=== PATIENT | female | born 1985 | race American Indian/Alaskan Native ===

== ENCOUNTER 2017-07-12 17:56 | Emergency (ER) | payer BC ==
[2017-07-12 18:59] LABS: Basophils % (Auto) 0.6 % (0.0-1.8); Eosinophils # (Auto) 0.1 K/mm3 (0.0-0.4); Hematocrit 37.6 % (30.3-42.9); Hemoglobin 12.5 gm/dl (10.1-14.3); Lymphocytes # (Auto) 1.8 K/mm3 (1.2-5.4); Lymphocytes % (Auto) 36.1 % (13.4-35.0); Mean Corpuscular HGB Conc 33 % (30-34); Mean Corpuscular Hemoglobin 36 pg (28-32); Mean Corpuscular Volume 109 fl (79-97); Monocytes # (Auto) 0.6 K/mm3 (0.0-0.8); Monocytes % (Auto) 12.5 % (0.0-7.3); Platelet Count 242 K/mm3 (140-440); Red Blood Count 3.47 M/mm3 (3.65-5.03); Red Cell Distribution Width 12.7 % (13.2-15.2)
[2017-07-12 19:03] LABS: Alanine Aminotransferase 18 units/L (7-56); Albumin 4.4 g/dL (3.9-5); BUN/Creatinine Ratio 13; Blood Urea Nitrogen 10 mg/dL (7-17); Calcium 9.3 mg/dL (8.4-10.2); Hemolysis Index 11; Lipase 14 units/L (13-60)
[2017-07-12 19:58] LABS: HCG Qualitative,Urine Negative (Negative)
[2017-07-12 20:00] LABS: Bilirubin,Urine NEG (Negative); Blood,Urine MOD (Negative); Color,Urine Yellow (Yellow); Mucus,Urine 3+ /HPF; Urobilinogen,Urine < 2.0 mg/dL (<2.0)
[2017-07-13] MEDS ORDERED: ZOFRAN IV ONE (02:09)
[2017-07-13] MEDS ORDERED: PEPCID IV ONE (02:09)
[2017-07-13] MEDS ORDERED: TORADOL IV ONE (02:09)
[2017-07-13] MEDS ORDERED: NACL 0.9% 1000 ML 1,000 ML IV ONE (02:09)
--- NOTE | 2017-07-13 02:34 | Emergency Department Report ---
HPI - General Chief Complaint: Abdominal Pain Time Seen by Provider: 07/13/17 01:24 - HPI HPI: Patient is a 32-year-old female with a history of GERD who presents with abdominal pain with nausea vomiting. Patient states she takes protein pump inhibitors and ranitidine has not been helping the patient's E she sees on a [facility] and has an appointment next Tuesday. Patient states abdominal pain and nausea vomiting has become intolerable that she could not wait to her doctor 's appointment so she came in today. She denies diarrhea or constipation, fever , chest pain, shortness of breath. ED Past Medical Hx - Past Medical History Hx GERD: Yes Additional medical history: chronic digestive problems - Surgical History Additional Surgical History: EGD-2016 - Social History Smoking Status: Never Smoker Substance Use Type: None - Medications Home Medications: Home Medications Medication Instructions Recorded Confirmed Last Taken Type Ondansetron [Zofran TAB] 8 mg PO Q8HR PRN #30 tablet 07/13/17 Unknown Rx traMADol [Ultram 50 MG tab] 50 mg PO Q6HR PRN #20 tablet 07/13/17 Unknown Rx ED Review of Systems ROS: Stated complaint: ABD PN Other details as noted in HPI Constitutional: denies: chills, fever Eyes: denies: eye pain, eye discharge, vision change ENT: denies: ear pain, throat pain Respiratory: denies: cough, shortness of breath, wheezing Cardiovascular: denies: chest pain, palpitations Endocrine: no symptoms reported Gastrointestinal: denies: abdominal pain, nausea, diarrhea Genitourinary: denies: urgency, dysuria, discharge Musculoskeletal: denies: back pain, joint swelling, arthralgia Skin: denies: rash, lesions Neurological: denies: headache, weakness, paresthesias Psychiatric: denies: anxiety, depression Hematological/Lymphatic: denies: easy bleeding, easy bruising Physical Exam - Physical Exam Vital Signs: Vital Signs 07/12/17 18:19 Temperature 98.6 F Pulse Rate 103 H Respiratory 18 Rate Blood Pressure 105/70 O2 Sat by Pulse 100 Oximetry Physical Exam: GENERAL: Alert and oriented x3, no apparent distress, Normal Gait, atraumatic. HEAD: Head is normocephalic and a-traumatic. MOUTH:Mouth is well hydrated and without lesions. Tonsils nonerythematous or swollen, Uvula midline, Tongue not elevated. Mucous membranes are moist. Posterior pharynx clear, no exudate or lesions. Patent airways. LUNGS: Symetrical with respiration, No wheezing, no rales or crackles, CTAB. HEART: S1, S2 present, regular rate and rhythm without murmur, no rubs, no gallops. Non tender to palpation ABDOMEN: No organomegaly was noted,Positive bowel sounds, soft, and non- distended. . Nontender to palpation on all Quadrants, NO CVA tenderness. BACK: Full range of motion, no spinal tenderness, nontender to palpation. NEUROLOGIC: The patient is cooperative with no focal neurologic deficits. SKIN: Warm and dry, No lesions, No ulceration or induration present. ED Course Vital Signs 07/12/17 18:19 Temperature 98.6 F Pulse Rate 103 H Respiratory 18 Rate Blood Pressure 105/70 O2 Sat by Pulse 100 Oximetry ED Medical Decision Making - Lab Data Result diagrams: 07/12/17 18:37 07/12/17 18:37 Laboratory Last Values WBC 4.9 K/mm3 (4.5-11.0) 07/12/17 18:37 RBC 3.47 M/mm3 (3.65-5.03) L 07/12/17 18:37 Hgb 12.5 gm/dl (10.1-14.3) 07/12/17 18:37 Hct 37.6 % (30.3-42.9) 07/12/17 18:37 MCV 109 fl (79-97) H 07/12/17 18:37 MCH 36 pg (28-32) H 07/12/17 18:37 MCHC 33 % (30-34) 07/12/17 18:37 RDW 12.7 % (13.2-15.2) L 07/12/17 18:37 Plt Count 242 K/mm3 (140-440) 07/12/17 18:37 Lymph % (Auto) 36.1 % (13.4-35.0) H 07/12/17 18:37 [place] % (Auto) 12.5 % (0.0-7.3) H 07/12/17 18:37 Eos % (Auto) 1.0 % (0.0-4.3) 07/12/17 18:37 Baso % (Auto) 0.6 % (0.0-1.8) 07/12/17 18:37 Lymph # 1.8 K/mm3 (1.2-5.4) 07/12/17 18:37 [place] # 0.6 K/mm3 (0.0-0.8) 07/12/17 18:37 Eos # 0.1 K/mm3 (0.0-0.4) 07/12/17 18:37 Baso # 0.0 K/mm3 (0.0-0.1) 07/12/17 18:37 Seg Neutrophils % 49.8 % (40.0-70.0) 07/12/17 18:37 Seg Neutrophils # 2.5 K/mm3 (1.8-7.7) 07/12/17 18:37 Sodium 141 mmol/L (137-145) 07/12/17 18:37 Potassium 3.6 mmol/L (3.6-5.0) 07/12/17 18:37 Chloride 102.6 mmol/L (98-107) 07/12/17 18:37 Carbon Dioxide 25 mmol/L (22-30) 07/12/17 18:37 Anion Gap 17 mmol/L 07/12/17 18:37 BUN 10 mg/dL (7-17) 07/12/17 18:37 Creatinine 0.8 mg/dL (0.7-1.2) 07/12/17 18:37 Estimated GFR > 60 ml/min 07/12/17 18:37 BUN/Creatinine Ratio 13 % 07/12/17 18:37 Glucose 78 mg/dL (65-100) 07/12/17 18:37 Calcium 9.3 mg/dL (8.4-10.2) 07/12/17 18:37 Total Bilirubin 0.50 mg/dL (0.1-1.2) 07/12/17 18:37 AST 21 units/L (5-40) 07/12/17 18:37 ALT 18 units/L (7-56) 07/12/17 18:37 Alkaline Phosphatase 69 units/L (35-129) 07/12/17 18:37 Total Protein 8.0 g/dL (6.3-8.2) 07/12/17 18:37 Albumin 4.4 g/dL (3.9-5) 07/12/17 18:37 Albumin/Globulin Ratio 1.2 % 07/12/17 18:37 Lipase 14 units/L (13-60) 07/12/17 18:37 Urine Color Yellow (Yellow) 07/12/17 19:35 Urine Turbidity Clear (Clear) 07/12/17 19:35 Urine pH 5.0 (5.0-7.0) 07/12/17 19:35 Ur Specific [place] 1.030 (1.003-1.030) 07/12/17 19:35 Urine Protein 30 mg/dl mg/dL (Negative) 07/12/17 19:35 Urine Glucose (UA) Neg mg/dL (Negative) 07/12/17 19:35 Urine Ketones Tr mg/dL (Negative) 07/12/17 19:35 Urine Blood Mod (Negative) 07/12/17 19:35 Urine Nitrite Neg (Negative) 07/12/17 19:35 Ur Reducing Substances Not Reportable 07/12/17 19:35 Urine Bilirubin Neg (Negative) 07/12/17 19:35 Urine Ictotest Not Reportable 07/12/17 19:35 Urine Urobilinogen < 2.0 mg/dL (<2.0) 07/12/17 19:35 Ur Leukocyte Esterase Tr (Negative) 07/12/17 19:35 Urine WBC (Auto) 5.0 /HPF (0.0-6.0) 07/12/17 19:35 Urine RBC (Auto) 2.0 /HPF (0.0-6.0) 07/12/17 19:35 U Epithel Cells (Auto) 5.0 /HPF (0-13.0) 07/12/17 19:35 Urine Mucus 3+ /HPF 07/12/17 19:35 Urine HCG, Qual Negative (Negative) 07/12/17 19:35 - Medical Decision Making 32-year-old female presents with gastritis ED course: Patient received 1 L of normal saline, Zofran, Toradol and Pepcid, CBC, CMP, urinalysis and urine test ordered All labs within normal limits, Discussed this finding with the patient. She reports feeling much better prior to discharge Discussed the patient and keep appointment with [facility] [employer] [facility] for Tuesday. 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 Vital signs are normal patient is in no acute distress Critical care attestation.: If time is entered above; I have spent that time in minutes in the direct care of this critically ill patient, excluding procedure time. ED Disposition Clinical Impression: Gastritis Qualifiers: Gastritis type: other gastritis Chronicity: chronic Gastritis bleeding: without bleeding Qualified Code(s): K29.50 - Unspecified chronic gastritis without bleeding Disposition: TO HOME OR SELFCARE Is pt being admited?: No Does the pt Need Aspirin: No Condition: Stable Instructions: Gastritis (ED), Diet for Ulcers and Gastritis (ED), Gastroesophageal Reflux Disease (ED), Abdominal Pain (ED) Additional Instructions: Make sure to follow up with the primary care physician as discussed. Take all your medications as you've been prescribed. If you have any worsening symptoms or develop new symptoms please return to ED immediately. Prescriptions: Ondansetron [Zofran TAB] 8 mg PO Q8HR PRN #30 tablet PRN Reason: Nausea traMADol [Ultram 50 MG tab] 50 mg PO Q6HR PRN #20 tablet PRN Reason: Pain Referrals: KAYDEN LUNA MD [Primary Care Provider] - 3-5 Days [facility] [Provider Group] - 3-5 Days Forms: Accompanied Note, Work/School Release Form(ED)
[2017-07-13 05:54] VITALS: BP 116/78
== END 2017-07-13 04:00 | disposition home or self-care (01) ==
LOC: ED 17:56
DX: K29.50 Unspecified chronic gastritis without bleeding (principal); K21.9 Gastro-esophageal reflux disease without esophagitis
CPT/HCPCS: 36415; 80053; 81001; 81025; 83690; 85025; 93005; 93010; 96361; 96374; 96375; 99283; J1885; J2405; J7030

== ENCOUNTER 2019-01-30 15:59 | Emergency (ER) | payer BC, OTHER ==
[2019-01-30 16:16] VITALS: BP 113/46
--- NOTE | 2019-01-30 16:21 | Event Note ---
ED Screening Note Date of service: 01/30/19 Time: 16:15 ED Screening Note: This is a 33 y.o. F. that presents to the ER with painful and pruritic rash to right hip x 3 days. This initial assessment/diagnostic orders/clinical plan/treatment(s) is/are subject to change based on patients health status, clinical progression and re- assessment by fellow clinical providers in the ED. Further treatment and workup at subsequent clinical providers discretion. Patient/guardian urged not to elope from the ED as their condition may be serious if not clinically assessed and managed. Initial orders include:
[2019-01-30] MEDS ORDERED: IBUPROFEN PO ONE (19:28)
--- NOTE | 2019-01-30 20:20 | XRay Report ---
LEFT HAND 3 VIEWS INDICATION / CLINICAL INFORMATION: thumb pain COMPARISON: None available. FINDINGS: BONES / JOINT(S): No acute fracture or subluxation. No significant arthritis. SOFT TISSUES: No significant abnormality. ADDITIONAL FINDINGS: None. Signer Name: Celso Ruffin MD Signed: 01/30/2019 8:15 PM Workstation Name: [id number]
--- NOTE | 2019-01-30 20:24 | Emergency Department Report ---
ED General Adult HPI - General Chief complaint: Extremity Injury, Lower Stated complaint: HIVES/MUSCLE SPASM Time Seen by Provider: 01/30/19 16:08 Source: patient Mode of arrival: Ambulatory Limitations: No Limitations - History of Present Illness Initial comments: This is a 33 y.o. F. that presents to the ER with painful and pruritic rash to right hip x 3 days. states was red vesicular, pain to touch, there is no fever no chills no n/v. Pt denies wheezing no sob. Pt does have secondary complaint of left thumb pain status blunt trauma 3 days ago. thumb pain is 4/10 aching. there is minimal swelling, no deformity, no open wound, no numbness , no tingling. rom remains intact. Onset/Timin -: days(s) Radiation: non-radiation Severity scale (0 -10): 7 Quality: burning Consistency: constant Improves with: none Worsens with: none Associated Symptoms: denies other symptoms Treatments Prior to Arrival: none - Related Data Previous Rx's Medication Instructions Recorded Last Taken Type Ondansetron (Nf) [Zofran TAB] 8 mg PO Q8HR PRN #30 tablet 07/13/17 Unknown Rx traMADol [Ultram 50 MG tab] 50 mg PO Q6HR PRN #20 tablet 07/13/17 Unknown Rx Lidocaine [Lidocaine CREAM] 1 applicatio TP TID PRN #1 tube 01/30/19 Unknown Rx Valacyclovir HCl [Valtrex] 1,000 mg PO BID 10 Days #20 tablet 01/30/19 Unknown Rx traMADol [Ultram] 50 mg PO Q6HR PRN #12 tablet 01/30/19 Unknown Rx Allergies Allergy/AdvReac Type Severity Reaction Status Date / Time No Known Allergies Allergy Unverified 07/12/17 18:22 ED Review of Systems ROS: Stated complaint: HIVES/MUSCLE SPASM Other details as noted in HPI Constitutional: denies: chills, fever Eyes: denies: eye pain, eye discharge, vision change ENT: denies: ear pain, throat pain Respiratory: denies: cough, shortness of breath, wheezing Cardiovascular: denies: chest pain, palpitations Endocrine: no symptoms reported Gastrointestinal: denies: abdominal pain, nausea, diarrhea Genitourinary: denies: urgency, dysuria, discharge Musculoskeletal: joint swelling, myalgia, other (thumb swelling pain ) Skin: rash (right hip ). denies: lesions Neurological: denies: headache, weakness, paresthesias Psychiatric: denies: anxiety, depression Hematological/Lymphatic: denies: easy bleeding, easy bruising ED Past Medical Hx - Past Medical History Previous Medical History?: Yes Hx GERD: Yes Additional medical history: chronic digestive problems - Surgical History Past Surgical History?: Yes Additional Surgical History: EGD-2016 - Social History Smoking Status: Current Some Day Smoker Substance Use Type: Alcohol - Medications Home Medications: Home Medications Medication Instructions Recorded Confirmed Last Taken Type Ondansetron (Nf) [Zofran TAB] 8 mg PO Q8HR PRN #30 tablet 07/13/17 Unknown Rx traMADol [Ultram 50 MG tab] 50 mg PO Q6HR PRN #20 tablet 07/13/17 Unknown Rx Lidocaine [Lidocaine CREAM] 1 applicatio TP TID PRN #1 tube 01/30/19 Unknown Rx Valacyclovir HCl [Valtrex] 1,000 mg PO BID 10 Days #20 tablet 01/30/19 Unknown Rx traMADol [Ultram] 50 mg PO Q6HR PRN #12 tablet 01/30/19 Unknown Rx ED Physical Exam - General Limitations: No Limitations General appearance: alert, in no apparent distress - Head Head exam: Present: atraumatic, normocephalic - Eye Eye exam: Present: normal appearance, PERRL, EOMI Pupils: Present: normal accommodation - ENT ENT exam: Present: normal orophraynx, mucous membranes moist, TM's normal bilaterally, normal external ear exam - Neck Neck exam: Present: normal inspection, full ROM. Absent: tenderness, meningismus, lymphadenopathy, thyromegaly - Respiratory Respiratory exam: Present: normal lung sounds bilaterally. Absent: respiratory distress, wheezes, rales, rhonchi, stridor, chest wall tenderness - Cardiovascular Cardiovascular Exam: Present: regular rate, normal rhythm, normal heart sounds. Absent: systolic murmur, diastolic murmur, rubs, gallop - GI/Abdominal GI/Abdominal exam: Present: soft, normal bowel sounds. 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 Absent: abrasion, laceration, ecchymosis, deformity, crepidus, dislocation, erythema, amputation, nail avulsion, subungual hematoma Neuro motor exam: Present: wrist extension intact, thumb opposition intact, thumb IP flexion intact, thumb adduction intact, fingers 2-5 abduction intact Neurosensory exam: Present: radial nerve intact Vascular: Present: radial pulse. Absent: pulse deficit radial art, pulse deficit ulnar art - Back Exam Back exam: Present: normal inspection, full ROM, tenderness. Absent: CVA tenderness (R), CVA tenderness (L), rash noted - Neurological Exam Neurological exam: Present: alert, oriented X3, CN II-XII intact, normal gait, reflexes normal. Absent: motor sensory deficit - Psychiatric Psychiatric exam: Present: normal affect, normal mood - Skin Skin exam: Present: warm, dry, intact, normal color, erythema, urticaria. Absent: rash (right hip , vesicular , red, pain to touch ), ecchymosis ED Course Vital Signs 01/30/19 16:05 Temperature 98.4 F Pulse Rate 83 Respiratory 18 Rate Blood Pressure 113/46 O2 Sat by Pulse 99 Oximetry ED Medical Decision Making - Radiology Data Radiology results: report reviewed, image reviewed no fracture no subluxation, no soft tissue abnormality - Medical Decision Making this is likely shinges rash, no allergry symptsoms no hives no stridor no wheezing no sob, plan: valtrex, ultram, lidocain oint, , secondary complaint: mild thumb sprain , pt will follow up with pcp in 2-3 days. return to ed if symptoms worsen. Critical care attestation.: If time is entered above; I have spent that time in minutes in the direct care of this critically ill patient, excluding procedure time. ED Disposition Clinical Impression: Shingles Qualifiers: Herpes zoster complications: without complications Qualified Code(s): B02.9 - Zoster without complications Left thumb sprain Qualifiers: Encounter type: sequela Sprain of finger site: metacarpophalangeal joint Qualified Code(s): S63.642S - Sprain of metacarpophalangeal joint of left thumb, sequela Disposition: TO HOME OR SELFCARE Is pt being admited?: No Does the pt Need Aspirin: No Condition: Stable Instructions: Finger Sprain (ED), Herpes Zoster (ED) Prescriptions: Lidocaine [Lidocaine CREAM] 1 applicatio TP TID PRN #1 tube PRN Reason: Pain , Severe (7-10) traMADol [Ultram] 50 mg PO Q6HR PRN #12 tablet PRN Reason: Pain Valacyclovir HCl [Valtrex] 1,000 mg PO BID 10 Days #20 tablet Referrals: [facility] [Outside] - 3-5 Days Forms: Work/School Release Form(ED) Time of Disposition: 20:32
== END 2019-01-31 02:00 | disposition home or self-care (01) ==
LOC: ED 15:59
DX: S63.6 Other and unspecified sprain of finger(s) (principal); B02.9 Zoster without complications; F17.200 Nicotine dependence, unspecified, uncomplicated; K21.9 Gastro-esophageal reflux disease without esophagitis; Z79.899 Other long term (current) drug therapy

== ENCOUNTER 2019-11-23 17:08 | Emergency (ER) | payer SELFPAY ==
[2019-11-23] MEDS ORDERED: KETOROLAC 30 MG/1 ML INJ IV ONE (22:26)
[2019-11-23] MEDS ORDERED: SODIUM CHLORIDE 0.9% 1000 ML 1,000 ML IV ONE (22:26)
[2019-11-23] MEDS ORDERED: ONDANSETRON 4 MG/2 ML INJ IV ONE (22:26)
[2019-11-23 22:55] LABS: Bacteria,Urine 1+ /HPF (Negative); Bilirubin,Urine NEG (Negative); Blood,Urine NEG (Negative); Color,Urine Yellow (Yellow); Mucus,Urine FEW /HPF; Protein,Urine <15 mg/dL mg/dL (Negative); Urobilinogen,Urine < 2.0 mg/dL (<2.0)
[2019-11-23 23:07] LABS: Basophils # (Auto) 0.1 K/mm3 (0.0-0.1); Basophils % (Auto) 1.1 % (0.0-1.8); Eosinophils # (Auto) 0.1 K/mm3 (0.0-0.4); Eosinophils % (Auto) 1.3 % (0.0-4.3); Hemoglobin 12.7 gm/dl (10.1-14.3); Lymphocytes # (Auto) 3.2 K/mm3 (1.2-5.4); Lymphocytes % (Auto) 38.5 % (13.4-35.0); Mean Corpuscular HGB Conc 34 % (30-34); Mean Corpuscular Volume 108 fl (79-97); Monocytes # (Auto) 0.6 K/mm3 (0.0-0.8); Monocytes % (Auto) 7.1 % (0.0-7.3); Platelet Count 322 K/mm3 (140-440); Red Blood Count 3.44 M/mm3 (3.65-5.03); Red Cell Distribution Width 13.6 % (13.2-15.2)
--- NOTE | 2019-11-23 23:07 | Emergency Department Report ---
ED Abdominal Pain HPI - General Chief Complaint: Abdominal Pain Stated Complaint: VAGINAL PAIN AND SPOTTING Time Seen by Provider: 11/23/19 22:17 Source: patient Mode of arrival: Ambulatory Limitations: No Limitations - History of Present Illness Initial Comments: Patient is a 34-year-old -[place] female with a history of renal stones who presents for bilateral flank pain x3 days radiating to bilateral super pubic region. Patient denies fevers or chills. Does endorse dysuria, frequency, urgency. There is no vaginal bleeding. Patient advises not . There is no nausea no vomiting. Symptoms are exacerbated by voiding. Symptoms are relieved by nothing tried. Patient is voiding at this time however. There is been no fever or chills. MD Complaint: flank pain Onset/Timin -: days(s) Location: L flank, R flank Radiation: suprapubic Severity scale (0 -10): 6 Quality: aching Consistency: constant Improves With: nothing Worsens With: other (voiding) Associated Symptoms: nausea, dysuria. denies: vomiting, diarrhea, fever, chills, hematuria - Related Data LMP Date: 10/15/19 Previous Rx's Medication Instructions Recorded Last Taken Type Ondansetron (Nf) [Zofran TAB] 8 mg PO Q8HR PRN #30 tablet 07/13/17 Unknown Rx traMADoL [Ultram 50 MG tab] 50 mg PO Q6HR PRN #20 tablet 07/13/17 Unknown Rx Lidocaine [Lidocaine CREAM] 1 applicatio TP TID PRN #1 tube 01/30/19 Unknown Rx Valacyclovir HCl [Valtrex] 1,000 mg PO BID 10 Days #20 tablet 01/30/19 Unknown Rx traMADoL [Ultram] 50 mg PO Q6HR PRN #12 tablet 01/30/19 Unknown Rx Ibuprofen [Motrin 800 MG tab] 800 mg PO Q8HR PRN #30 tablet 11/23/19 Unknown Rx Nitrofurantoin [place]/M-Cryst 100 mg PO BID 7 Days #14 capsule 11/23/19 Unknown Rx [Macrobid CAP] Allergies Allergy/AdvReac Type Severity Reaction Status Date / Time No Known Allergies Allergy Unverified 07/12/17 18:22 ED Review of Systems ROS: Stated complaint: VAGINAL PAIN AND SPOTTING Other details as noted in HPI Constitutional: denies: chills, fever Eyes: denies: eye pain, eye discharge, vision change ENT: denies: ear pain, throat pain Respiratory: no symptoms reported Cardiovascular: denies: chest pain, palpitations Endocrine: no symptoms reported Gastrointestinal: abdominal pain, nausea. denies: vomiting Genitourinary: urgency, dysuria, frequency. denies: hematuria, discharge Musculoskeletal: back pain Skin: denies: rash, lesions Neurological: denies: headache, weakness, paresthesias Psychiatric: denies: anxiety, depression Hematological/Lymphatic: denies: easy bleeding, easy bruising ED Past Medical Hx - Past Medical History Previous Medical History?: Yes Hx GERD: Yes Additional medical history: chronic digestive problems - Surgical History Past Surgical History?: Yes Additional Surgical History: EGD-2016 - Social History Smoking Status: Never Smoker Substance Use Type: None - Medications Home Medications: Home Medications Medication Instructions Recorded Confirmed Last Taken Type Ondansetron (Nf) [Zofran TAB] 8 mg PO Q8HR PRN #30 tablet 07/13/17 Unknown Rx traMADoL [Ultram 50 MG tab] 50 mg PO Q6HR PRN #20 tablet 07/13/17 Unknown Rx Lidocaine [Lidocaine CREAM] 1 applicatio TP TID PRN #1 tube 01/30/19 Unknown Rx Valacyclovir HCl [Valtrex] 1,000 mg PO BID 10 Days #20 tablet 01/30/19 Unknown Rx traMADoL [Ultram] 50 mg PO Q6HR PRN #12 tablet 01/30/19 Unknown Rx Ibuprofen [Motrin 800 MG tab] 800 mg PO Q8HR PRN #30 tablet 11/23/19 Unknown Rx Nitrofurantoin [place]/M-Cryst 100 mg PO BID 7 Days #14 capsule 11/23/19 Unknown Rx [Macrobid CAP] ED Physical Exam - General Limitations: No Limitations General appearance: alert, in no apparent distress - Head Head exam: Present: atraumatic, normocephalic - Eye Eye exam: Present: normal appearance Pupils: Present: normal accommodation - ENT ENT exam: Present: mucous membranes moist - Neck Neck exam: Present: normal inspection, full ROM. Absent: tenderness - Respiratory Respiratory exam: Present: normal lung sounds bilaterally, chest wall tenderness. Absent: respiratory distress, wheezes, stridor - Cardiovascular Cardiovascular Exam: Present: regular rate, normal rhythm, normal heart sounds. Absent: systolic murmur, diastolic murmur, rubs, gallop - GI/Abdominal GI/Abdominal exam: Present: soft, normal bowel sounds. Absent: distended, tenderness, guarding, rebound, rigid, bruit, hernia - Rectal Rectal exam: Present: deferred - Extremities Exam Extremities exam: Present: normal inspection, full ROM. Absent: tenderness - Back Exam Back exam: Present: normal inspection, full ROM, tenderness, CVA tenderness (R), CVA tenderness (L). Absent: vertebral tenderness, rash noted - Neurological Exam Neurological exam: Present: alert, oriented X3, CN II-XII intact, normal gait - Psychiatric Psychiatric exam: Present: normal affect, normal mood - Skin Skin exam: Present: warm, dry, intact, normal color. Absent: rash ED Course Vital Signs 11/23/19 17:11 Temperature 98.1 F Pulse Rate 105 H Respiratory 18 Rate Blood Pressure 115/88 O2 Sat by Pulse 100 Oximetry ED Medical Decision Making - Lab Data Result diagrams: 11/23/19 22:47 11/23/19 22:47 Labs 11/23/19 11/23/19 11/23/19 22:40 22:47 22:47 WBC 8.3 RBC 3.44 L Hgb 12.7 Hct 37.0 MCV 108 H MCH 37 H MCHC 34 RDW 13.6 Plt Count 322 Lymph % (Auto) 38.5 H [place] % (Auto) 7.1 Eos % (Auto) 1.3 Baso % (Auto) 1.1 Lymph # 3.2 [place] # 0.6 Eos # 0.1 Baso # 0.1 Seg Neutrophils % 52.0 Seg Neutrophils # 4.3 Sodium 140 Potassium 3.8 Chloride 101.5 Carbon Dioxide 26 Anion Gap 16 BUN 7 Creatinine 0.7 Estimated GFR > 60 BUN/Creatinine Ratio 10 Glucose 99 Calcium 9.9 Total Bilirubin 0.40 AST 17 ALT 14 Alkaline Phosphatase 80 Total Protein 8.6 H Albumin 4.6 Albumin/Globulin Ratio 1.2 Urine Color Yellow Urine Turbidity Slightly-cloudy Urine pH 5.0 Ur Specific [place] 1.016 Urine Protein <15 mg/dl Urine Glucose (UA) Neg Urine Ketones Neg Urine Blood Neg Urine Nitrite Neg Urine Bilirubin Neg Urine Urobilinogen < 2.0 Ur Leukocyte Esterase Mod Urine WBC (Auto) 8.0 H Urine RBC (Auto) 2.0 U Epithel Cells (Auto) 15.0 H Urine Bacteria (Auto) 1+ Urine Mucus Few Urine HCG, Qual Negative - Medical Decision Making UA: pos for [place], WBCs, bun &Cr are normal, plan: tx for UTI, pt rx Macrobid , and ibuprofen, pt is tolerating po intake with out symptoms , plan: dc to home with rx , follow up with primary care doctor in 2-3 days, pt verbalized agreement and understanding of discharge plan. Critical care attestation.: If time is entered above; I have spent that time in minutes in the direct care of this critically ill patient, excluding procedure time. ED Disposition Clinical Impression: UTI (urinary tract infection) Qualifiers: Urinary tract infection type: acute cystitis Hematuria presence: without hematuria Qualified Code(s): N30.00 - Acute cystitis without hematuria Disposition: DC-01 TO HOME OR SELFCARE Is pt being admited?: No Does the pt Need Aspirin: No Condition: Stable Instructions: Urinary Tract Infection in Women (ED) Prescriptions: Nitrofurantoin [place]/M-Cryst [Macrobid CAP] 100 mg PO BID 7 Days #14 capsule Ibuprofen [Motrin 800 MG tab] 800 mg PO Q8HR PRN #30 tablet PRN Reason: pain Referrals: CHASE ROCHE MD [Staff Physician] - 3-5 Days Forms: Work/School Release Form(ED)
[2019-11-23 23:15] LABS: HCG Qualitative,Urine Negative (Negative)
[2019-11-23 23:24] LABS: Alanine Aminotransferase 14 units/L (7-56); Albumin 4.6 g/dL (3.9-5); Blood Urea Nitrogen 7 mg/dL (7-17); Calcium 9.9 mg/dL (8.4-10.2); Hemolysis Index 7
[2019-11-23 23:27] LABS: BUN/Creatinine Ratio 10
[2019-11-24 02:42] VITALS: BP 116/86
== END 2019-11-24 00:17 | disposition home or self-care (01) ==
LOC: ED 17:08
DX: N39.0 Urinary tract infection, site not specified (principal); K21.9 Gastro-esophageal reflux disease without esophagitis
CPT/HCPCS: 36415; 80053; 81001; 81025; 85025; 96361; 96372; 96374; 96375; 99283; J0696; J1885; J2405; J7030